=== PATIENT | female | born 1980 ===

== ENCOUNTER 2025-03-21 09:47 | Outpatient (CLI) | payer OTHER | END 2025-03-21 09:53 | disposition home or self-care (01) | LOC: SONOGRAMA 09:47 | PROVIDERS: ATTEND Internal Medicine Hematology & Oncology | DX: E04.2 Nontoxic multinodular goiter (principal); D68.61 Antiphospholipid syndrome; E72.12 Methylenetetrahydrofolate reductase deficiency ==

== ENCOUNTER 2025-04-25 09:33 | Outpatient (CLI) | payer OTHER ==
[2025-04-25 10:30] LABS: BASO % 0.1 % (0.1-1.2); EOS # 0.02 (0.04-0.54); EOS % 0.3 % (0.7-7.0); LYMPH # 2.43 (1.18-3.74); LYMPH % 35.4 % (19.3-53.1); MEAN PLATELET VOLUME 10.30 fl (9.4-12.4); MONO # 0.45 (0.24-0.82); MONO % 6.6 % (4.7-12.5); NEUT # 3.94 (1.56-6.13); NEUT % 57.5 % (34.0-71.1); RED CELL DISTRIBUTION WIDTH 12.9 % (11.6-14.4)
[2025-04-25 11:43] LABS: % SATURACION 22.0 % (15-50); ALT/SGPT 33.0 U/L (12-78); AST/SGOT 18.0 U/L (15-37); BILIRUBIN TOTAL 0.55 mg/dL (0.3-1.2); BUN CREA RATIO 25.0 (7.0-25.0); CREATININE SERUM 0.52 mg/dL (0.55-1.02); FE 74.0 ug/dl (50-170); GFR 129.32; GLOBULINA 3.6 G/DL (2.4-3.5); GLUCOSE FASTING 80.0 mg/dL (65-100); LDH 170.0 U/L (84-246); OSMOLALITY SERUM 280.0 MOSM/KG (275-295)
[2025-04-25 11:54] LABS: FOLIC ACID 11.91 ng/ml (4.78-20)
[2025-04-26 08:10] LABS: HOMOCYSTEINE 6.0 umol/L (0.0-14.5)
[2025-04-26 16:11] LABS: ANTI CARDIO IGA < 9 APL U/mL (0-11); ANTI CARDIO IGG < 9 GPL U/mL (0-14); ANTI CARDIO IGM < 9 MPL U/mL (0-12)
[2025-04-27 20:11] LABS: ANTI-THROMBIN III 105 % (75-135); PROTEIN C ACTIVITY 100 % (73-180); PROTEIN S ACTIVITY 103 % (63-140)
[2025-04-28 08:09] LABS: beta 2 gly iga < 9 (0-25); beta 2 gly igg < 9 (0-20); beta 2 gly igm < 9 (0-32)
== END 2025-04-25 09:37 | disposition home or self-care (01) ==
LOC: LAB 09:33
PROVIDERS: ATTEND Internal Medicine Hematology & Oncology
DX: D50.8 Other iron deficiency anemias (principal); R71.8 Other abnormality of red blood cells; I10 Essential (primary) hypertension; R74.02 Elevation of levels of lactic acid dehydrogenase [LDH]; K76.89 Other specified diseases of liver; D51.3 Other dietary vitamin B12 deficiency anemia; D52.9 Folate deficiency anemia, unspecified; E53.8 Deficiency of other specified B group vitamins; D68.59 Other primary thrombophilia; D68.61 Antiphospholipid syndrome; D68.51 Activated protein C resistance; D68.69 Other thrombophilia; D68.62 Lupus anticoagulant syndrome; D68.312 Antiphospholipid antibody with hemorrhagic disorder; E72.11 Homocystinuria; E72.12 Methylenetetrahydrofolate reductase deficiency